=== PATIENT | male | born 1965 | race Caucasian/White ===

== ENCOUNTER 2023-01-24 14:39 | Emergency (ER) | payer OTHER ==
[~2023-01-24] VITALS: Ht 175.3 cm; Wt 65.8 kg
[2023-01-24 15:18] VITALS: BP 147/78; PULSE 63; RESP 18; TEMP 98.4; O2SAT 99
[2023-01-24] MEDS ORDERED: ACET-8905 PO (18:20)
[2023-01-24] MEDS ORDERED: LID5T TP (18:20)
[2023-01-24 18:32] VITALS: BP 114/79; PULSE 84; RESP 17; O2SAT 98
== END 2023-01-24 18:32 | disposition home or self-care (01) ==
LOC: MED 14:39
DX: S46.811A Strain of other muscles, fascia and tendons at shoulder and upper arm level, right arm, initial encounter (principal); S39.012A Strain of muscle, fascia and tendon of lower back, initial encounter; F17.200 Nicotine dependence, unspecified, uncomplicated; Z71.6 Tobacco abuse counseling; Z88.5 Allergy status to narcotic agent; Z79.899 Other long term (current) drug therapy; W18.30XA Fall on same level, unspecified, initial encounter; Y93.89 Activity, other specified; Y92.89 Other specified places as the place of occurrence of the external cause; Y99.8 Other external cause status; R03.0 Elevated blood-pressure reading, without diagnosis of hypertension
CPT/HCPCS: 72080; 72100; 73030; 73502; 99284